=== PATIENT | male | born 2000 | race African-American/Black ===

== ENCOUNTER 2020-06-04 09:46 | Emergency (ER) | payer OTHER, SELFPAY ==
[2020-06-04 10:01] VITALS: BP 159/107; PULSE 94; RESP 18; TEMP 36.4; O2SAT 100
[2020-06-04 10:13] VITALS: BP 159/107; PULSE 94; RESP 18; TEMP 36.4; O2SAT 100
--- NOTE | 2020-06-04 10:18 | ED.GENADULT ---
HPI - General Adult General Chief complaint: Unspecified Stated complaint: Heart Racing,trouble breathing Source: patient, RN notes reviewed and old records reviewed Mode of arrival: ambulatory Limitations: no limitations History of Present Illness HPI narrative: 20 year old male who presents to [facility] care with complaints of some trouble breathing, heart racing and feeling bloated last night, states that he threw up and it was burning. Patient concerned that he could have sleep apnea because he will wake up choking and then has heart racing and bloating feeling. Patient states when he was a child he had sleep apnea and they took his tonsils and adenoids out which seemed to help. He reports that he has gained weight and his BMI 34.5. Location: chest Radiation: non-radiation Associated symptoms: other (heart racing) Treatments prior to arrival: other (took adalid seltzer last night) Related Data Allergies Allergy/AdvReac Type Severity Reaction Status Date / Time No Known Allergies Allergy Verified 06/06/20 14:19 Review of Systems Review of Systems: Narrative: CONSTITUTIONAL: Denies fever, chills, or sweats. EYES: Denies visual changes, redness, or discharge. ENT: Denies rhinorrhea, congestion, sore throat, or otalgia. CARDIOVASCULAR: Denies chest pain, palpitations, or edema, positive for heart racing. RESPIRATORY: Denies cough or acute dyspnea.reports wakes choking like sleep apnea GASTROINTESTINAL: Denies abdominal pain, nausea, vomiting, or diarrhea, positive bloating. GENITOURINARY: Denies dysuria or hematuria. SKIN: Denies rash or itching. MUSCULOSKELETAL: Denies back pain, joint pain, or myalgia. NEUROLOGIC: Denies headache, numbness, or weakness. PSYCHIATRIC: Denies anxiety or depression. All systems reviewed & are unremarkable except as noted in HPI and below PMFSH Past Medical History Medical History (Updated 06/06/20 @ 20:59 by Aster Islas NP) Hx of gastroesophageal reflux (GERD) Surgical History Surgical History History of tonsillectomy and adenoidectomy Family History Family History (Updated 06/06/20 @ 21:35 by Aster Islas NP) Father Hypertension Diabetes mellitus DARINEL (obstructive sleep apnea) Sibling Hypertension Social History Social History Years smoked: 5 Smoking status: Former smoker Tobacco type: e-cigarettes/vaping Smoking end date: 06/03/20 Additional smoking assessment comments: no nicotine Alcohol intake: never Substance use: never Gender identity (if verbalized by the patient): Male Spiritual care concerns: No Comments At time of signature, agree with nursing past medical, surgical, social and family history. There is no relevant family history pertinent to the presenting complaint Exam Narrative: Exam Narrative: GENERAL: Well-appearing, well-nourished, obese and in no acute distress. HEAD: Normocephalic, atraumatic. EYES: PERRLA and EOMI. ENT: Nares clear, no rhinorrhea or epistaxis. Mucous membranes moist.TM's normal with good light reflex, throat pink with no lesions or exudates. NECK: Supple.no lymphadenopathy CHEST: Clear to auscultation. No respiratory distress.SAO2 100% on room air HEART: Regular rate and rhythm. No murmur heard. Normal peripheral pulses.no peripheral edema noted ABDOMEN: Soft, nontender, nondistended, normal active bowel sounds. EXTREMITIES: Normal range of motion. No edema noted. SKIN: Warm, dry, no rash. NEURO: No focal deficits. Alert and oriented x3. Course Vital Signs Vital signs: Vital Signs Temperature 36.4 C L 06/04/20 10:01 Pulse Rate 94 06/04/20 10:01 Respiratory Rate 18 06/04/20 10:01 Blood Pressure 159/107 H 06/04/20 10:01 Pulse Oximetry 100 06/04/20 10:01 Temperature 36.4 C L 06/04/20 10:13 Pulse Rate 87 06/04/20 10:38 Respiratory Rate 19 06/04/20 10:38 Blood Pressure 136/84
[2020-06-04 10:38] VITALS: BP 136/84; PULSE 87; RESP 19
--- NOTE | 2020-06-04 10:45 | ECG_ITS ---
Measurements Intervals [place] Rate: 106 P: 49 IN: 140 QRS: 20 QRSD: 101 T: 6 QT: 425 QTc: 566 Interpretive Statements SINUS TACHYCARDIA LEFT ATRIAL ENLARGEMENT BORDERLINE ST-T WAVE ABNORMALITY- INF/LAT LEADS BASELINE WANDER- II, III, AVF BORDERLINE ECG Electronically Signed On 06-04-2020 11:02:53 CDT by Mitchell Chen D.O.
== END 2020-06-04 11:24 | disposition home or self-care (01) ==
PROVIDERS: Emergency Provider Registered Nurse
DX: K21.9 Gastro-esophageal reflux disease without esophagitis (principal); G47.33 Obstructive sleep apnea (adult) (pediatric)
CPT/HCPCS: 93005; 99203; G0463

== ENCOUNTER 2020-06-06 12:59 | Inpatient (IN) | payer OTHER, SELFPAY ==
[2020-06-06] VITALS (10 sets, daily range): BP systolic 144–183; BP diastolic 78–122; PULSE 51–106; RESP 18–28; TEMP 36.2–36.3; O2SAT 94–99; BMI 44.4
--- NOTE | ~2020-06-06 | US_ITS ---
EXAMINATION: US retroperitoneal duplex ltd DATE: 06/07/2020 08:38 CDT INDICATION: Accelerated hypertension. TECHNIQUE: Sonographic imaging of the kidneys was performed with a 3.5 MHz transducer. Retroperitone al duplex sonogram of the renal arteries also obtained. FINDINGS: No focal flow abnormalities are seen in the renal arteries on color Doppler. The peak syst olic velocity ranges of the right and left renal arteries and aorta are 103 cm per second, 56 cm per second, and 75 cm per second, respectively. The velocities and renal to aortic ratios are within norm al limits. IMPRESSION: 1. No Doppler evidence of renal artery stenosis. Reviewed, dictated and finalized at location B.
--- NOTE | ~2020-06-06 | XR_ITS ---
XR chest 2V 06/06/2020 13:37 Indication: Shortness of breath Procedure: PA and lateral views of the chest Comparison: No prior studies for comparison. Findings: There is perihilar interstitial infiltration with peribronchial thickening. Cardiomegaly. N o pleural effusion or pneumothorax. Impression: 1: Bilateral symmetric perihilar infiltrates which may represent mild edema or pneumonia. 2: Cardiomegaly. Reviewed, dictated and finalized at location B. Impression: 1: Bilateral symmetric perihilar infiltrates which may represent mild edema or pneumonia. 2: Cardiomegaly.
--- NOTE | ~2020-06-06 | US_ITS ---
EXAMINATION:US venous doppler LE BI INDICATION:Leg edema TECHNIQUE: Multiple grayscale, color flow and Doppler images of the right and left lower extremity de ep venous systems were obtained and reviewed. COMPARISON:No prior studies for comparison. FINDINGS: The common femoral, superficial femoral and popliteal veins demonstrate normal respiratory variation, augmentation and compressibility. Color flow is also seen within the posterior tibial, pe roneal, greater saphenous and profunda veins. IMPRESSION: 1: No lower extremity deep venous thrombosis. Reviewed, dictated and finalized at location B.
--- NOTE | 2020-06-06 13:15 | ECG_ITS ---
Measurements Intervals [place] Rate: 103 P: 44 VA: 161 QRS: 26 QRSD: 102 T: 42 QT: 357 QTc: 467 Interpretive Statements SINUS TACHYCARDIA POSSIBLE LEFT ATRIAL ENLARGEMENT DELAYED PRECORDIAL R/S TRANSITION BORDERLINE ST-T WAVE ABNORMALITY- INF/LAT LEADS BASELINE ARTIFACT- I ABNORMAL ECG Electronically Signed On 06-06-2020 13:38:45 CDT by Mitchell Chen D.O.
[2020-06-06 13:35] LABS: Basophils Absolute Auto 0.1 K/mm3 (0.0-0.1); Basophils Percent Auto 0.7 % (0.2-1.2); Eosinophils Absolute Auto 0.2 K/mm3 (0-0.3); Hematocrit 50.6 % (42.0-52.0); Hemoglobin 16.4 g/dL (14.0-18.0); Immature Granulocyte Absolute 0.02 K/mm3 (0.00-0.031); Immature Granulocyte Percent A 0.3 % (0-0.5); Lymphocytes Absolute Auto 1.97 K/mm3 (0.9-3.2); Lymphocytes Percent Auto 26.4 % (18.3-44.2); Mean Corpuscular HGB Conc 32.4 g/dl (32-36); Mean Corpuscular Hemoglobin 27.8 pg (26-34); Mean Corpuscular Volume 85.9 fl (80-100); Mean Platelet Volume 9.9 fl (7.4-10.4); Monocytes Absolute Auto 0.8 K/mm3 (0.1-0.6); Monocytes Percent Auto 11.2 % (2.6-8.5); Neutrophils Absolute Auto 4.4 K/mm3 (1.3-6.7); Neutrophils Percent Auto 59.4 % (45.5-73.1); Platelet Count Result 263 k/mm3 (150-375); Red Blood Count 5.89 M/mm3 (4.6-6.20); Red Cell Distribution Width 12.8 % (11.5-14.5); White Blood Count 7.5 K/mm3 (4.5-10.0)
[2020-06-06 13:57] LABS: Anion Gap 4 mmol/L (8-16); Blood Urea Nitrogen 15 mg/dL (9-20); Calcium 8.4 mg/dL (8.4-10.2); Carbon Dioxide 28 mmol/L (22-30); Chloride 107 mmol/L (98-107); Estimated CRCL calculation 104 ml/min; Estimated Glomerular Filt Rate > 60; Glucose 88 mg/dL (75-110); Potassium 4.1 mmol/L (3.4-5.0); Sodium 139 mmol/L (137-145)
[2020-06-06 15:18] LABS: NT Pro B Type Natriuretic Pept 4500 pg/mL (5-100); Troponin I 0.028 ng/mL (0.000-0.034)
--- NOTE | 2020-06-06 16:20 | ED.SOB ---
HPI - SOB/Dyspnea General Chief Complaint: Shortness of Breath/Dyspnea Stated Complaint: Bilateral side pain,heavy breathing Time Seen by Provider: 06/06/20 14:27 Source: patient Mode of arrival: ambulatory Limitations: no limitations History of Present Illness HPI Narrative: 20-year-old male Complains of gradually increasing shortness of breath which is been present for at least a month He also has occasionally had some anterior chest pain, and he has been having swelling in his legs as well He denies a cough, wheezing, or a fever The chest discomfort is kind of bloated and full feeling in the mid chest and upper abdomen, he was actually seen at an urgent care and given a PPI for that which has not helped. He has a discomfort most days, and he cannot identify anything which has made it better or worse. Related Data Allergies Allergy/AdvReac Type Severity Reaction Status Date / Time No Known Allergies Allergy Verified 06/06/20 14:19 Review of Systems Review of Systems: All systems reviewed & are unremarkable except as noted in HPI and below Constitutional: Constitutional: Reports no additional constitutional complaints, Denies chills, Denies fever(s) and Denies headache(s) Eyes: Eyes: Reports no additional eye complaints and Denies change in vision ENT: Denies headache(s) and Denies sore throat Cardiovascular: Cardiovascular: Reports chest pain, Denies rapid heart rate, Denies radiating jaw, neck or arm pain, Denies dyspnea and Denies slow heart rate Respiratory: Respiratory: Denies chest congestion, Denies cough, Reports dyspnea and Denies wheezing Gastrointestinal: Gastrointestinal: Denies abdominal pain, Denies diarrhea and Denies vomiting Genitourinary: Genitourinary: Denies dysuria and Denies urinary frequency Musculoskeletal: Musculoskeletal: Denies deformity, Denies arthralgias, Reports joint swelling and Denies numbness Integumentary/Breasts: Skin/Breast: Denies rash and Denies wounds Neurologic: Denies headache(s), Denies focal weakness and Denies numbness Psychiatric: Psychiatric: Reports no additional psychiatric complaints Endocrine: Endocrine: Reports no additional endocrine complaints Hematologic/Lymphatic: Hematologic/Lymphatic: Reports no additional hematologic/lymphatic complaints Allergic/Immunologic: Allergic/Immunologic: Reports no additional allergic/immunologic complaints [facility] Surgical History Surgical History History of tonsillectomy and adenoidectomy Social History Social History Tobacco type: e-cigarettes/vaping Additional smoking assessment comments: no nicotine Gender identity (if verbalized by the patient): Male Exam Const: General: cooperative, no acute distress and alert Nutritional Appearance: obese Orientation/consciousness: patient oriented x3 (alert) HENMT: Head: normal to inspection, normocephalic and atraumatic Ears: external ears normal General nose exam: no epistaxis Eyes: Conjunctivae: conjunctivae normal EOM: EOMs intact bilaterally Neck: Neck: normal visual inspection, supple and no JVD Other: No JVD Resp: Effort & Inspection: normal respiratory effort and not labored Auscultation: clear to auscultation bilaterally, no rales, no rhonchi, no wheezes and other (BS =) Cardio: Rate: regular rate Rhythm: regular rhythm Heart sounds: no murmurs GI: GI Palp: Yes Soft to palpation, No Tenderness to palpation present (GI), No Guarding due to palpation present (GI) and No Rebound tenderness present Skin: General skin exam: normal color and no rashes or lesions noted Neuro: General: patient oriented x3 (alert) and moves all extremities Speech: normal speech Extrem: General: normal to inspection Other: Trace to 1+ left 1+ right pitting pedal edema no tenderness Psych: Affect: normal affect Course Course Emergency Course: Discussed
[2020-06-06] MEDS: amLODIPine BESYLATE 5 MG TABLET 10 MG PO (16:39)
[2020-06-06] MEDS: FUROSEMIDE INJ 40 MG/4 ML VIAL IV PUSH (16:39)
--- NOTE | 2020-06-06 17:28 | PC.NURSE ---
ALEJANDRO faxed to [address] [place] [address] at [phone]
--- NOTE | 2020-06-06 18:30 | PM.IMHP ---
H&P: HPI History of Present Illness Date/Time: 06/06/20 18:30 Chief Complaint: Shortness of breath. Narrative: This is a pleasant 20-year-old male without any known significant medical history who presented to the emergency department earlier today for evaluation of shortness of breath. 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 It seems to have gotten worse over the last several weeks and he also notes intermittent abdominal ?bloating? and swelling in his legs, right greater than left. He feels that he has had little to no energy over the past 2 weeks and he has not been sleeping well due to feelings of shortness of breath at night. With further questioning he does admit that his girlfriend told him that he snores loudly and she has witnessed episodes of apnea. He was seen at a local urgent care within the past couple of days for evaluation of these symptoms and he was prescribed pantoprazole, presumably for GERD as he mentioned having discomfort in the low sternum/epigastric region. He does have intermittent indigestion but nothing significant has not noticed any benefit with the pantoprazole. Of note his blood pressures have been running high, as high as 183/110 in the emergency department, and he has no known history of hypertension. Currently he denies headache, auditory and visual changes, chest pain, pleuritic pain, cold and flu symptoms, fever, chills, sweats, exertional chest pain, nausea, palpitations, racing heart, and calf pain. Of note the patient was told that he had a heart murmur and a hole in his heart when he was younger, however an echocardiogram done years later apparently showed no evidence of such. Review of Systems Review of Systems: Narrative: Twelve systems were reviewed with pertinent positives and negatives as per HPI. No fever, chills, or sweats. No sinus congestion, rhinorrhea, otalgia, or odynophagia. He did have nausea and 1 episode of emesis in the emergency department but feels better at this time. No diarrhea or constipation. He denies dysuria. No history of venous thromboembolism. Except as documented, all other systems were reviewed and are negative. [facility] Past Medical History Medical History (Updated 06/06/20 @ 22:39 by Mya Hernandez PA-C) Anxiety Gastroesophageal reflux disease Surgical History Surgical History History of tonsillectomy and adenoidectomy Family History Family History Father Hypertension Diabetes mellitus DARINEL (obstructive sleep apnea) Sibling Hypertension Mother Hypertension Social History Social History (Updated 06/06/20 @ 22:36 by Mya Hernandez PA-C) Social History: The patient has been staying with his dad in [place]. He works at [employer]. He has been vaping for about 5 years but quit last week. He drinks alcohol in moderation maybe every other week. No illicit substance use. He designates his mother Salbador Delong as his surrogate decision maker and he wishes to be a full code. Years smoked: 5 Smoking status: Former smoker Tobacco type: e-cigarettes/vaping Smoking end date: 06/03/20 Additional smoking assessment comments: no nicotine Alcohol intake: never Substance use: never Gender identity (if verbalized by the patient): Male Spiritual care concerns: No Meds Home Medications and Allergies Home Medications Medication Instructions Recorded Confirmed Type albuterol sulfate 2 puff INHALATION QID PRN #8.5 g 06/04/20 06/06/20 Rx pantoprazole [Protonix] 40 mg PO QAM 28 Days #28 tablet 06/04/20 06/06/20 Rx Allergies Allergy/AdvReac Type Severity Reaction Status Date / Time No Known Allergies Allergy Verified 06/06/20 14:19 Vital Signs
--- NOTE | 2020-06-06 20:10 | ADMGEN ---
This patient, Isela Valles, was admitted to Medical Room 246-. Patient/family oriented to hospital policies and general routines including ID bracelet, bed and alarms, visiting hours, pain management, procedures, bathroom and other care routines, personal items, smoking policy, room service/diet, and visiting hours. Information on how to activate the Rapid Response Team has been discussed. Patient/Family are encouraged to report perceived risks to care and to ask questions if they do not understand what they are told or what they should do.
--- NOTE | 2020-06-06 20:14 | PC.NURSE ---
Patient blood pressure was elevated 183/88 at 20:14
--- NOTE | 2020-06-06 20:14 | PC.NURSE ---
Patient blood pressure elevated 183/88 06/06/2020 20:14. Gave lasix Iv will check blood pressure again after lasix.
[2020-06-06] MEDS: FUROSEMIDE INJ 40 MG/4 ML VIAL 20 MG IV PUSH (20:33)
[2020-06-06] MEDS: carvediloL 3.125 MG TABLET PO (20:41)
--- NOTE | 2020-06-06 22:56 | PC.NURSE ---
Patient blood pressure is decreased after lasiks 144/78 06/06/2020 22:00.
[2020-06-07] VITALS (13 sets, daily range): BP systolic 134–154; BP diastolic 88–118; PULSE 60–115; RESP 16–20; TEMP 36.1–36.2; O2SAT 98–100
[2020-06-07 05:38] LABS: Hematocrit 50.2 % (42.0-52.0); Hemoglobin 15.9 g/dL (14.0-18.0); Mean Corpuscular HGB Conc 31.7 g/dl (32-36); Mean Corpuscular Hemoglobin 27.3 pg (26-34); Mean Corpuscular Volume 86.1 fl (80-100); Platelet Count Result 280 k/mm3 (150-375); Red Blood Count 5.83 M/mm3 (4.6-6.20); Red Cell Distribution Width 12.6 % (11.5-14.5); White Blood Count 9.6 K/mm3 (4.5-10.0)
[2020-06-07 05:48] LABS: Alanine Aminotransferase 46 U/L (4-50); Albumin Level 3.4 g/dL (3.5-5.1); Alkaline Phosphatase 57 U/L (38-126); Anion Gap 3 mmol/L (8-16); Aspartate Amino Transferase 33 U/L (17-59); Bilirubin,Total 1.3 mg/dL (0.2-1.3); Blood Urea Nitrogen 13 mg/dL (9-20); Calcium 8.2 mg/dL (8.4-10.2); Carbon Dioxide 30 mmol/L (22-30); Chloride 105 mmol/L (98-107); Estimated CRCL calculation 122 ml/min; Estimated Glomerular Filt Rate > 60; Glucose 94 mg/dL (75-110); Magnesium 1.8 mg/dL (1.6-2.3); Potassium 3.5 mmol/L (3.4-5.0); Sodium 138 mmol/L (137-145)
[2020-06-07] MEDS: carvediloL 3.125 MG TABLET PO ×2 (09:06→20:08)
[2020-06-07] MEDS: amLODIPine BESYLATE 5 MG TABLET 10 MG PO (09:07)
[2020-06-07] MEDS: PANTOPRAZOLE 40 MG TABLET PO (09:07)
[2020-06-07] MEDS: ENOXAPARIN 40 MG/0.4 ML SYRINGE SUB-Q (09:08)
[2020-06-07] MEDS: POTASSIUM CHLORIDE 20 MEQ TABLET.ER PO (09:08)
[2020-06-07] MEDS: ASPIRIN 81 MG CHEWABLE TABLET PO (09:08)
[2020-06-07] MEDS: FUROSEMIDE INJ 40 MG/4 ML VIAL 20 MG IV PUSH ×2 (09:09→20:09)
[2020-06-07] MEDS: PERFLUTREN LIPID MICROSPHERES 1.5 ML VIAL DILUTED TO 10 ML TOTAL VOLUME IV PUSH (10:32)
--- NOTE | 2020-06-07 12:03 | PM.IMPN ---
Progress Note: A&P Assessment and Plan (1) Shortness of breath: Code(s): R06.02 - Shortness of breath Status: Acute Assessment and Plan: Due to suspected CHF. CXR with evidence of mild pulmonary edema and cardiomegaly. BNP 4500. He presented with abdominal and lower extremity edema. Echocardiogram is pending Continue Lasix 20 mg b.i.d. Monitor renal function and electrolytes closely with diuresis Monitor intake and output. Weight daily. Heart healthy diet Will consider cardiology consultation based on echocardiogram results if new onset heart failure in this young patient (2) Hypertensive urgency: Code(s): I16.0 - Hypertensive urgency Status: Acute Assessment and Plan: Blood pressure was elevated up to 176/122. This may be in part due to volume from suspected CHF. Blood pressure has improved modestly although diastolic is still quite elevated. Last BP was 148/118. Renal duplex ultrasound ordered evaluation of hypertension in combination with renal insufficiency with no findings of renal artery stenosis. Continue with cautious diuresis Amlodipine and carvedilol has been initiated which will be continued at this time Monitor blood pressure trends closely (3) Renal insufficiency: Code(s): N28.9 - Disorder of kidney and ureter, unspecified Status: Acute Assessment and Plan: Creatinine is elevated at presentation at 1.4 but has improved to 1.2 today. Etiology unclear. Duplex renal ultrasound negative. Monitor renal function closely given ongoing diuresis (4) Gastroesophageal reflux disease: Code(s): K21.9 - Gastro-esophageal reflux disease without esophagitis Status: Acute Assessment and Plan: Symptoms have improved. Continue Protonix 40 mg qAM (5) Suspected sleep apnea: Code(s): R29.818 - Other symptoms and signs involving the nervous system Status: Acute Assessment and Plan: Patient endorses snoring and restless sleep. Apnea link performed overnight on 06/06/2020 showed high probability for pathologic breathing disorder. He will need to obtain outpatient sleep study promptly upon discharge. Echocardiogram pending to evaluate for pulmonary hypertension Subjective Date/time seen: 06/07/20 12:03 Interval history: Date of service: 06/08/2019 Isela Valles is a pleasant 20-year-old male without any known significant medical history who is seen in follow-up for suspected congestive heart failure. He is doing okay today. He felt a little bit nauseous this morning but stated this improved after having a little bit of water. He has been having some hot flashes and diaphoresis. He denies any episodes of chest pain. He does endorse orthopnea. He endorses GAYTAN. At rest, he denies shortness of breath. He felt he was wheezing last night. He also noted that he woke up multiple times but could not recall if he was gasping for air or snoring. His having diarrhea yesterday but this seems to have resolved today. He reports frequent urination secondary to Lasix but denies dysuria, hematuria, urgency. Appetite has been good. He denies headache. He feels that his lower extremity edema has improved mildly. Review of Systems Review of Systems: All systems reviewed & are unremarkable except as noted in HPI and below Exam Narrative: Exam Narrative: Mr. Valles is an obese, well-appearing 20-year-old male who is sitting in a chair by the bedside. He appears comfortable and is in NARD. Neuro: awake, alert and oriented x4, speech clear, no focal neuro deficits noted HEENMT: normocephalic, atraumatic, EOMI, sclerae anicteric, moist oral mucosa, tongue midline, nares patent Neck: supple, no lymphadenopathy Respiratory: clear to auscultation bilaterally, nonlabored breathing Cardio: regular rate, regular rhythm with S1-S2 Abdomen: Protuberant, normoactive bowel sounds, soft, nontender to palpation, no ri
--- NOTE | 2020-06-07 15:11 | PM.CNCAR ---
Assessment and Plan Additional Plan Very unfortunate 20-year-old man who presents with shortness of breath for about 2 months progressively getting worse. Presenting with overt congestive heart failure and by echo found to have a relatively severe dilated cardiomyopathy. His myopathy is obviously not acute since his left ventricle is markedly dilated. This is a chronic process either postviral or idiopathic. At this time I would recommend shifting him from amlodipine to Entresto. Modest dose of carvedilol started yesterday will be continued I will see start spironolactone for optimal suppression of his renal an angiotensin axis and stop his potassium supplement. The patient will need to be seen by the [employer] telesales representative to be fitted for a LifeVest prior to discharge. I told the patient and his mother that they should anticipate being in the hospital through the weekend for initiation of medication and titration before he is stable enough for discharge. At his unfortunately young age we would have a low threshold for referring this he young man to the [facility] [place]. Felice Sahu MD [facility] History of Present Illness History of Present Illness Consult date/time: 06/07/20 15:11 Consult reason: congestive heart failure Reason For Visit: cardiomegaly, hypertension, ameena Narrative: This is a very pleasant but unfortunate 20-year-old gentleman that I am seeing at the request of the hospitalists for assistance with the evaluation and management of cardiomyopathy and congestive heart failure. Patient has no history of significant medical problems other than he says his physicians have suspected that he may have sleep apnea. He is morbidly obese with a BMI of 44.5. He however has otherwise been healthy active man and states that he noticed about 2-3 months ago he started to have trouble with exertional shortness of breath. 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 Not having any other symptoms. He cannot recall having a febrile illness of any sort in the couple of months leading up to this. The symptoms progressively and slowly worsened over the last couple of months with shortness of breath with modest activity. He then started to notice symptoms of orthopnea and PND which resulted him at times sitting in a chair at home to get some sleep. The symptoms progressed and he came to the emergency room yesterday where he was evaluated and admitted to the hospital. His chest x-ray showed enlargement of the cardiac silhouette and some bibasilar congestion. He was placed on some furosemide and potassium by the hospitalist he was also placed on amlodipine as his blood pressure was elevated. Echocardiogram was done this morning and interpreted by my partner showing evidence of a severe dilated cardiomyopathy with an ejection fraction of 20-25%. There is a small circumferential pericardial effusion as well. In this setting I am seeing him in consultation. Patient is seated in his chair in his hospital room his mother is there he does not appear to be of any other great distress at this time. Review of Systems Constitutional: Constitutional: Reports fatigue and Reports weakness Eyes: Eyes: Reports no additional eye complaints ENT: Reports system reviewed and no additional complaints, except as documented Cardiovascular: Cardiovascular: Reports as per HPI Respiratory: Respiratory: Reports dyspnea on exertion Gastrointestinal: Gastrointestinal: Reports no additional gastrointestinal complaints Musculoskeletal: Musculoskeletal: Reports no additional musculoskeletal complaints Neurologic: Reports system reviewed and no additional complaints, except as documented Psychiatric: Psychiatric: Reports no additional psychiatric complaints Endocrine: Endocrine: Reports no additional endocrine compla
[2020-06-07] MEDS: SACUBITRIL/VALSARTAN 24-26 MG TABLET 1 TAB PO (20:09)
[2020-06-07] MEDS: MELATONIN 5 MG TABLET PO (20:09)
--- NOTE | 2020-06-07 22:42 | ECHO_ITS ---
Patient Info Name: Isela Valles Age: 20 years : 2000 Gender: Male Ht: 70 in Wt: 309 lbs BSA: 2.70 m2 HR: 100 bpm BP: 144 / 78 mmHg Heart Rhythm: Tachycardia Technical Quality: Good Exam Date: 06/07/2020 9:55 AM Exam Location: [facility] Patient Status: Inpatient Admit Date: 06/06/2020 Staff Ordering Physician: Mya Hernandez PA-C General Duty Nurse: Jose M Dixon, FREDEIRCK, RT Attending Provider: Kaya Hua PA-C Referring Physician: David KOHLER; Exam Type: CA echo dop bubble study w con Study Info Indications I51.7 - Cardiomegaly Strain analysis performed. Complete two-dimentional, color flow and Doppler transthoracic echocardiogram is performed with agitated saline and with contrast to opacify the left ventricle and to improve the delineation of the left ventricle endocardial borders. Summary 1. Left ventricular chamber dimension is severely enlarged. 2. Left ventricular systolic function is severely reduced, estimated at 20-25%. 3. There is mildly increased left ventricular wall thickness. 4. The left ventricular diastolic function is grade III diastolic dysfunction. 5. There is no thrombus visualized in the left ventricle. 6. Left atrial chamber dimension is moderately enlarged. 7. Right atrial chamber dimension is mildly enlarged. 8. There is mild mitral valve regurgitation. 9. There is trace tricuspid valve regurgitation. 10. Moderate pulmonary hypertension, estimated pulmonary arterial systolic pressure is 50 mmHg. 11. Dilated inferior vena cava with <50% collapse upon inspiration consistent with significantly elevated right atrial pressure, 15 mmHg. 12. There is a small circumferential pericardial effusion with moderate focal collection in proximity to the right atrium. No clear tamponade physiology by tricuspid or mitral inflow velocities. However, eveidence of increased intrapericardial pressures with slight invagination of right atrial free wall and alternans with inflow velocities. 13. No intracardiac shunt at the atrial level with injection of agitated saline with and without Valsalva. Left Ventricle Left ventricular chamber dimension is severely enlarged. Left ventricular systolic function is severely reduced, estimated at 20-25%. There is mildly increased left ventricular wall thickness. The left ventricular diastolic function is grade III diastolic dysfunction. There is no thrombus visualized in the left ventricle. Global longitudinal strain is severely elevated at -5 %. Right Ventricle Right ventricular chamber dimension is normal. Right ventricular systolic function is reduced. Left Atria Left atrial chamber dimension is moderately enlarged. Right Atria Right atrial chamber dimension is mildly enlarged. Atrial Septum No intracardiac shunt at the atrial level with injection of agitated saline with and without Valsalva. Aortic Valve The aortic valve is probable trileaflet. There is no aortic valve stenosis. There is no aortic valve regurgitation. Pulmonic Valve The pulmonic valve is normal. There is mild pulmonic regurgitation. Mitral Valve The mitral valve has normal leaflets. There is mild mitral valve regurgitation. Tricuspid Valve The tricuspid valve leaflets are normal. There is trace tricuspid valve regurgitation. Moderate pulmonary hypertension, estimated pulmonary arterial systolic pressure is 50 mmHg. Pericardium/Pleural The pericardium appears normal. There is a small circumferential perica
[2020-06-08] VITALS (11 sets, daily range): BP systolic 128–159; BP diastolic 76–89; PULSE 50–102; RESP 16–20; TEMP 36–36.3; O2SAT 99–100
[2020-06-08 05:56] LABS: Anion Gap 5 mmol/L (8-16); Blood Urea Nitrogen 12 mg/dL (9-20); Calcium 8.5 mg/dL (8.4-10.2); Carbon Dioxide 29 mmol/L (22-30); Chloride 104 mmol/L (98-107); Estimated CRCL calculation 132 ml/min; Estimated Glomerular Filt Rate > 60; Glucose 94 mg/dL (75-110); Potassium 3.6 mmol/L (3.4-5.0); Sodium 138 mmol/L (137-145)
[2020-06-08] MEDS: carvediloL 3.125 MG TABLET PO (09:44)
[2020-06-08] MEDS: ASPIRIN 81 MG CHEWABLE TABLET PO (09:44)
[2020-06-08] MEDS: SPIRONOLACTONE 25 MG TABLET PO (09:44)
[2020-06-08] MEDS: SACUBITRIL/VALSARTAN 24-26 MG TABLET 1 TAB PO ×2 (09:44→19:58)
[2020-06-08] MEDS: ENOXAPARIN 40 MG/0.4 ML SYRINGE SUB-Q (09:45)
[2020-06-08] MEDS: FUROSEMIDE INJ 40 MG/4 ML VIAL 20 MG IV PUSH (09:45)
[2020-06-08] MEDS: PANTOPRAZOLE 40 MG TABLET PO (09:45)
--- NOTE | 2020-06-08 10:19 | PM.PNCARD ---
Progress Note: A&P Additional Plan 20-year-old man with: Unfortunate diagnosis of severe dilated cardiomyopathy symptom onset 0 gradually over the last several months. Has had a nice response to initiation of medical therapy. I will advance his carvedilol dosage to 6.25 mg q.12 hours starting with this evening's dosage. I will also transition him to oral furosemide at this time. If he is doing well by tomorrow morning I will anticipate discharge to home. He has been supplied with his Life Vest device. Felice Sahu MD [facility] Subjective Date/time seen: date of service:06/08/20 10:19 Interval history: Follow-up visit in this unfortunate 20-year-old man with severe dilated cardiomyopathy with biventricular heart failure. Feels much better this morning is able to breathe freely for the 1st time in a long time. Offers no cardiovascular complaints. Exam Const: General: comfortable and no acute distress Other: Pleasant cooperative obese young man no distress HENMT: Mouth: Yes moist mucous membranes Eyes: Sclera: sclerae normal Pupils: Equal, round and reactive pupils present Neck: Neck: supple and no JVD Thyroid: thyroid normal Resp: Effort & Inspection: normal respiratory effort Auscultation: clear to auscultation bilaterally Cardio: Rate: regular rate Rhythm: regular rhythm Other: PMI not palpable summation gallop noted GI: GI Palp: Yes Soft to palpation Auscultation: normal bowel sounds Skin: General skin exam: normal color Neuro: Cognition (Neuro): normal cognition Extrem: General: normal to inspection Objective Data Vital Signs Vital Signs: Vital Signs - 24 hr 06/07/20 10:53 06/07/20 12:00 06/07/20 13:00 Temperature Pulse Rate 115 H 112 H Respiratory Rate Blood Pressure 146/109 H 141/91 H Pulse Oximetry 06/07/20 14:00 06/07/20 16:00 06/07/20 20:00 Temperature 36.1 C L Pulse Rate 60 103 H 102 H Respiratory Rate 16 Blood Pressure 140/92 H Pulse Oximetry 99 06/07/20 20:08 06/07/20 22:00 06/08/20 00:00 Temperature 36.2 C L Pulse Rate 112 H 101 H 88 Respiratory Rate 18 Blood Pressure 134/88 Pulse Oximetry 100 06/08/20 04:00 06/08/20 06:00 06/08/20 09:44 Temperature 36.3 C L Pulse Rate 95 98 98 Respiratory Rate 16 Blood Pressure 144/86 H Pulse Oximetry 99 Intake/Output Intake/Output: Intake & Output 06/05/20 06/06/20 06/07/20 06/08/20 23:59 23:59 23:59 23:59 Intake Total 2270 390 Output Total 1400 Balance 870 390 Meds/Results Medications: Active Medications Generic Name Dose Route Start Last Admin Trade Name Freq PRN Reason Stop Dose Admin Acetaminophen 650 mg 06/06/20 16:40 Acetaminophen 325 Mg Tablet PO Q4H PRN Mild Pain (1-3) or Fever Albuterol 2 puff 06/06/20 22:46 Albuterol Sulfate (*Sp) Aerosol 1 Puff INHALATION QID PRN shortness of breath or wheezing Aspirin 81 mg 06/07/20 08:00 06/08/20 09:44 Aspirin 81 Mg Chewable Tablet PO 81 mg DAILY@0800 CRESENCIO Administration Carvedilol 6.25 mg 06/08/20 21:00 Carvedilol 6.25 Mg Tablet PO Q12HR CRESENCIO Enoxaparin Sodium 40 mg 06/07/20 09:00 06/08/20 09:45 Enoxaparin 40 Mg/0.4 Ml Syringe SUB-Q 40 mg DAILY CRESENCIO Administration Melatonin 5 mg 06/07/20 21:00 06/07/20 20:09 Melatonin 5 Mg Tablet PO 5 mg HS CRESENCIO Administration Pantoprazole Sodium 40 mg 06/07/20 09:00 06/08/20 09:45 Pantoprazole 40 Mg Tablet PO 40 mg QAM CRESENCIO Administration Sacubitril/Valsartan 1 tab 06/07/20 21:00 06/08/20 09:44 Sacubitril/Valsartan 24-26 Mg Tablet PO 1 tab Q12HR CRESENCIO Administration Spironolactone 25 mg 06/08/20 09:00 06/08/20 09:44 Spironolactone 25 Mg Tablet PO 25 mg QAM CRESENCIO Administration Radiology Results: ITS Impressions Chest X-Ray 06/06/20 14:02 Impression: 1: Bilateral symmetric perihilar infiltrates which may represent mild edema or pneumonia. 2: Card
--- NOTE | 2020-06-08 11:47 | PM.IMPN ---
Progress Note: A&P Assessment and Plan (1) Congestive heart failure (CHF): Code(s): I50.9 - Heart failure, unspecified Status: Acute Assessment and Plan: CXR with evidence of mild pulmonary edema and cardiomegaly. BNP 4500. He presented with abdominal and lower extremity edema as well as progressive dyspnea. Echocardiogram performed on 06/07/2020 with severely reduced EF of 20-25% and grade III diastolic dysfunction with severely enlarged LV chamber Cardiology has been consulted for management. Recommendations appreciated P.o. Lasix, carvedilol, Entresto, and spironolactone have been initiated for medical management He has been fitted for Crovat Monitor intake and output. Weight daily. Heart healthy diet (2) Dilated cardiomyopathy: Code(s): I42.0 - Dilated cardiomyopathy Status: Acute Assessment and Plan: Plan as above (3) Hypertensive urgency: Code(s): I16.0 - Hypertensive urgency Status: Acute Assessment and Plan: Improved. Blood pressure was elevated up to 176/122. This may be in part due to volume overload from suspected CHF. Blood pressure has improved with medical management as described above. Last BP was 144/86. Renal duplex ultrasound ordered evaluation of hypertension in combination with renal insufficiency with no findings of renal artery stenosis. Continue with medications as described above Monitor blood pressure trends closely (4) Renal insufficiency: Code(s): N28.9 - Disorder of kidney and ureter, unspecified Status: Acute Assessment and Plan: Creatinine is elevated at presentation at 1.4 but has improved and is stable at 1.1 today. Duplex renal ultrasound negative. Monitor renal function closely given ongoing diuresis (5) Gastroesophageal reflux disease: Code(s): K21.9 - Gastro-esophageal reflux disease without esophagitis Status: Acute Assessment and Plan: Symptoms have improved. Continue Protonix 40 mg qAM (6) Suspected sleep apnea: Code(s): R29.818 - Other symptoms and signs involving the nervous system Status: Acute Assessment and Plan: Patient endorses snoring and restless sleep. Apnea link performed overnight on 06/06/2020 showed high probability for pathologic breathing disorder. Moderate pulmonary hypertension noted on echo He will need to obtain outpatient sleep study promptly upon discharge. Subjective Date/time seen: 06/08/20 11:47 Interval history: Date of service: 06/08/2020 Isela Valles is a pleasant 20-year-old male without any known significant medical history who is seen in follow-up for suspected congestive heart failure. He is feeling much better today. He is in good spirits and states that he has not felt this good in a long time. States this is the first time he feels like he can take a deep breath in months. He notes that for the past few months he has felt much older than his age, and now he feels like a normal 20 year old. He feels that his lower extremity edema has resolved. He was able to sleep through the night last night and did not wake up. He did not note snoring or PND. He denies wheezing. No orthopnea. His appetite is good. He denies nausea, vomiting, fever, chills, dizziness, or lightheadedness. No chest pain. No urinary symptoms. He is having regular bowel movements. Review of Systems Review of Systems: All systems reviewed & are unremarkable except as noted in HPI and below Exam Narrative: Exam Narrative: Mr. Valles is an obese, well-appearing 20-year-old male who is sitting in a chair by the bedside. He is wearing his LifeVest. He appears comfortable and is in NARD. Neuro: awake, alert and oriented x4, speech clear, no focal neuro deficits noted HEENMT: normocephalic, atraumatic, EOMI, sclerae anicteric, moist oral mucosa, tongue midline, nares patent Neck: supple, no lymphadenopathy Respirat
[2020-06-08] MEDS: carvediloL 6.25 MG TABLET PO (19:57)
[2020-06-08] MEDS: MELATONIN 5 MG TABLET PO (19:58)
[2020-06-09] VITALS: PULSE 89
[2020-06-09 04:00] VITALS: PULSE 94
[2020-06-09 05:50] LABS: Anion Gap 5 mmol/L (8-16); Blood Urea Nitrogen 14 mg/dL (9-20); Calcium 8.8 mg/dL (8.4-10.2); Carbon Dioxide 30 mmol/L (22-30); Chloride 103 mmol/L (98-107); Estimated CRCL calculation 109 ml/min; Estimated Glomerular Filt Rate > 60; Glucose 90 mg/dL (75-110); Potassium 3.5 mmol/L (3.4-5.0); Sodium 138 mmol/L (137-145)
[2020-06-09 06:00] VITALS: BP 140/81; PULSE 88; RESP 16; TEMP 36.1; O2SAT 100
[2020-06-09 08:00] VITALS: PULSE 87; PULSE 88; RESP 16; O2SAT 100
[2020-06-09 08:01] VITALS: PULSE 88
[2020-06-09] MEDS: carvediloL 6.25 MG TABLET PO (08:01)
[2020-06-09] MEDS: PANTOPRAZOLE 40 MG TABLET PO (08:02)
[2020-06-09] MEDS: FUROSEMIDE 20 MG TABLET PO (08:02)
[2020-06-09] MEDS: SPIRONOLACTONE 25 MG TABLET PO (08:02)
[2020-06-09] MEDS: ENOXAPARIN 40 MG/0.4 ML SYRINGE SUB-Q (08:02)
[2020-06-09] MEDS: ASPIRIN 81 MG CHEWABLE TABLET PO (08:02)
[2020-06-09] MEDS: SACUBITRIL/VALSARTAN 24-26 MG TABLET 1 TAB PO (08:02)
[2020-06-09 14:00] VITALS: BP 146/92; PULSE 91; RESP 16; TEMP 36.6; O2SAT 98
--- NOTE | 2020-06-09 15:06 | PM.PNCARD ---
Progress Note: A&P Additional Plan 20-year-old man with: Severe dilated cardiomyopathy with decompensated congestive heart failure symptoms going on for 2-3 months progressively more severe prior to admission. He has responded very well to a standard medical therapy and appears to be a good candidate for discharge. LifeVest has been supplied and he is wearing that. I would like to see him in follow-up in about 2 weeks follow up my office schedule that when they are back open tomorrow. I will also anticipate arranging for referral to the Heart failure team [facility] given his extremely and unfortunately young age if he does not do well with medical therapy more advanced heart failure treatment may well be necessary in a man who is this young Felice Sahu MD [facility] Subjective Date/time seen: Date of service: 06/09/20 15:06 Interval history: Follow-up visit in this 20-year-old man with: Unfortunate diagnosis of severe dilated cardiomyopathy and congestive heart failure. He has done very well with initiation of standard medical therapy including carvedilol, Entresto, spironolactone and furosemide. Today he reports that he is completely asymptomatic he is wearing his Life Vest [place] his mother are in the room they have no questions or concerns at this time. Exam Const: General: comfortable and no acute distress Other: Very pleasant obese black male no distress of any kind HENMT: Mouth: Yes moist mucous membranes Eyes: Sclera: sclerae normal Pupils: Equal, round and reactive pupils present Neck: Neck: supple Other: Inability to assess venous distention given his body habitus Resp: Effort & Inspection: normal respiratory effort Auscultation: clear to auscultation bilaterally Cardio: Rate: regular rate Rhythm: regular rhythm GI: GI Palp: Yes Soft to palpation Auscultation: normal bowel sounds Skin: General skin exam: normal color Neuro: Cognition (Neuro): normal cognition Extrem: General: normal to inspection Objective Data Vital Signs Vital Signs: Vital Signs - 24 hr 06/08/20 16:00 06/08/20 19:57 06/08/20 20:00 Temperature Pulse Rate 95 102 H 101 H Respiratory Rate Blood Pressure Pulse Oximetry 06/08/20 22:00 06/09/20 00:00 06/09/20 04:00 Temperature 36.0 C L Pulse Rate 54 L 89 94 Respiratory Rate 20 Blood Pressure 159/89 H Pulse Oximetry 100 06/09/20 06:00 06/09/20 08:00 06/09/20 08:01 Temperature 36.1 C L Pulse Rate 88 87 88 Respiratory Rate 16 16 Blood Pressure 140/81 Pulse Oximetry 100 100 06/09/20 14:00 Temperature 36.6 C Pulse Rate 91 Respiratory Rate 16 Blood Pressure 146/92 H Pulse Oximetry 98 Intake/Output Intake/Output: Intake & Output 06/06/20 06/07/20 06/08/20 06/09/20 23:59 23:59 23:59 23:59 Intake Total 2270 870 780 Output Total 1400 750 Balance 870 870 30 Meds/Results Medications: Active Medications Generic Name Dose Route Start Last Admin Trade Name Freq PRN Reason Stop Dose Admin Acetaminophen 650 mg 06/06/20 16:40 Acetaminophen 325 Mg Tablet PO Q4H PRN Mild Pain (1-3) or Fever Albuterol 2 puff 06/06/20 22:46 Albuterol Sulfate (*Sp) Aerosol 1 Puff INHALATION QID PRN shortness of breath or wheezing Aspirin 81 mg 06/07/20 08:00 06/09/20 08:02 Aspirin 81 Mg Chewable Tablet PO 81 mg DAILY@0800 CRESENCIO Administration Carvedilol 6.25 mg 06/08/20 21:00 06/09/20 08:01 Carvedilol 6.25 Mg Tablet PO 6.25 mg Q12HR CRESENCIO Administration Enoxaparin Sodium 40 mg 06/07/20 09:00 06/09/20 08:02 Enoxaparin 40 Mg/0.4 Ml Syringe SUB-Q 40 mg DAILY CRESENCIO Administration Furosemide 20 mg 06/09/20 09:00 06/09/20 08:02 Furosemide 20 Mg Tablet PO 20 mg DAILY CRESENCIO Administration Melatonin 5 mg 06/07/20 21:00 06/08/20 19:58 Melatonin 5 Mg Tablet PO 5 mg HS CRESENCIO Administration Pantoprazole Sodium 40 mg 06/07/20 09:00 06/09/20 08:02 Pantoprazole
--- NOTE | 2020-06-09 15:49 | PM.DS ---
DS: Admitting Diagnosis Admitting Diagnosis Admitting Diagnosis: Dyspnea DS: Discharge Diagnosis Discharge Diagnosis (1) Congestive heart failure (CHF): Code(s): I50.9 - Heart failure, unspecified Status: Acute Assessment and Plan: CXR with evidence of mild pulmonary edema and cardiomegaly. BNP 4500. He presented with abdominal and lower extremity edema as well as progressive dyspnea. Echocardiogram performed on 06/07/2020 with severely reduced EF of 20-25% and grade III diastolic dysfunction with severely enlarged LV chamber. He was seen in consultation by cardiology. He was outfitted for a LifeVest on 06/08/2020 and is aware he will need to continue wearing this at all times besides when bathing. He was started on Lasix daily, spironolactone daily, Entresto BID, and carvedilol BID. Blood pressure was stable with these medications. Also started on aspirin 81 mg daily to reduce risk of LV thrombus given low EF. CHF education provided. He will follow-up with Dr. Sahu, stencil machine operator, in 2 weeks with plans for referral to heart failure clinic at [facility] given his young age. (2) Dilated cardiomyopathy: Code(s): I42.0 - Dilated cardiomyopathy Status: Acute Assessment and Plan: Severely dilated cardiomyopathy noted on echocardiogram with market LV dilation suggesting chronic process. [place] to be post viral or idiopathic in nature. Plan as above (3) Hypertensive urgency: Code(s): I16.0 - Hypertensive urgency Status: Acute Assessment and Plan: Improved. Blood pressure was elevated up to 176/122. This was likely due to volume overload from CHF. Blood pressure improved with medical management as described above. Renal duplex ultrasound ordered evaluation of hypertension in combination with renal insufficiency with no findings of renal artery stenosis. Continue with medication regimen as noted above. Recommended monitoring BP to 3 times weekly at home and follow-up with PCP and stencil machine operator for further management. (4) Renal insufficiency: Code(s): N28.9 - Disorder of kidney and ureter, unspecified Status: Acute Assessment and Plan: Creatinine was elevated at presentation at 1.4 but slowly improved. Duplex renal ultrasound negative. Plan for repeat BMP in 1 week for further monitoring given initiation of furosemide. (5) Gastroesophageal reflux disease: Code(s): K21.9 - Gastro-esophageal reflux disease without esophagitis Status: Acute Assessment and Plan: Continue Protonix 40 mg qAM (6) Suspected sleep apnea: Code(s): R29.818 - Other symptoms and signs involving the nervous system Status: Acute Assessment and Plan: Patient endorses snoring and restless sleep. Apnea link performed overnight on 06/06/2020 showed high probability for pathologic breathing disorder. Moderate pulmonary hypertension noted on echo. He will need to obtain outpatient sleep study promptly upon discharge. DS: Summary Hospital Course Reason for hospitalization: Dyspnea Hospital Course: Date of admission: 06/06/2020 Date of discharge: 06/09/2020 Isela Valles is a pleasant 20-year-old male without any known significant medical history who presented to the emergency department on 06/06/2020 with complaints of gradually increasing shortness of breath ongoing for 1-2 months as well as lower extremity edema. Upon presentation to the emergency department, his BP was elevated at 160 3/119 with additional vital signs stable, CBC unremarkable, creatinine was elevated at 1.4 with additional electrolytes stable, BNP was elevated at 4500, and CXR showed bilateral symmetric perihilar infiltrates likely representing mild edema as well as cardiomegaly. He was admitted to the hospitalist service for further evaluation and management and was seen in consultation by cardiology. He was diagnosed with dilated cardiomyopathy based on echo findings. He was
== END 2020-06-09 16:21 | disposition home or self-care (01) | DRG 291 ==
LOC: ANHED 16:38 → ANH2MED 18:37
PROVIDERS: Physician Assistant; Admitting Provider Internal Medicine; Emergency Provider Emergency Medicine; Visit Provider Family Medicine
DX: I11.0 Hypertensive heart disease with heart failure (principal); I50.31 Acute diastolic (congestive) heart failure; Z68.41 Body mass index [BMI] 40.0-44.9, adult; I42.0 Dilated cardiomyopathy; I16.0 Hypertensive urgency; N28.9 Disorder of kidney and ureter, unspecified; K21.9 Gastro-esophageal reflux disease without esophagitis; R29.818 Other symptoms and signs involving the nervous system; F17.290 Nicotine dependence, other tobacco product, uncomplicated; E66.01 Morbid (severe) obesity due to excess calories; F41.9 Anxiety disorder, unspecified
CPT/HCPCS: 36415; 71046; 80048; 80053; 83735; 83880; 84443; 84484; 85025; 85027; 93005; 93970; 93976; 94762; 96372; 96374; 96375; 96376; 99285; A9270; C8929; G0378; J1650; J1940; Q9957